=== PATIENT | male | born 1965 | race Two or more races ===

== ENCOUNTER 2024-12-27 05:38 | Day surgery (SDC) | payer OTHER ==
[2024-12-24 10:40] LABS: HEMATOCRIT 35.6 % (39.0-48.0); HEMOGLOBIN 11.6 g/dL (13-16.00); MEAN CELL VOLUME 88.6 fL (80.0-100.00); MEAN CORPUSCULAR HEMOGLOBIN 28.9 pg (27.00-32.0); MEAN CORPUSCULAR HGB CONC 32.7 g/dl (32.0-36.0); PLATELET COUNT 341 K/uL (150-450); RED BLOOD COUNT 4.02 M/uL (4.00-6.00); RED CELL DISTRIBUTION WIDTH 13.8 % (11.5-14.5)
[2024-12-24 10:57] LABS: INR 1.03; PARTIAL THROMBOPLASTIN TIME 29.1 SECONDS (22.0-34.0); PROTHROMBIN TIME 11.2 SECONDS (9.0-11.5)
[2024-12-24 11:00] LABS: ALBUMIN 3.8 gm/dL (3.4-5.0); CALCIUM 9.4 mg/dL (8.5-10.1); CREATININE SERUM 0.92 mg/dL (0.70-1.30); GFR 83.64; PHOSPHOROUS 2.9 mg/dL (2.5-4.9); POTASSIUM 3.61 mEq/L (3.5-5.1)
[2024-12-24 13:23] LABS: PH,URINE 5.5 (5.0-8.0); URINE APPEARANCE Clear; URINE BILIRRUBIN Negative (NEGATIVE); URINE BLOOD Negative; URINE COLOR Yellow; URINE GLUCOSE Negative (NEGATIVE); URINE KETONE Negative (NEGATIVE); URINE LEUKOCYTE Negative; URINE NITRATE Negative; URINE PROTEIN Trace (NEGATIVE)
[2024-12-24 13:26] LABS: URINE EPITHELIAL CELLS 1.4 uL (0.0-38.8)
[2024-12-24 13:46] LABS: URINE RBC 1.7 uL (0.0-20.8); URINE WBC 1.2 uL (0.0-23.2)
[2024-12-27] MEDS ORDERED: CEFAZOLIN SODIUM 1,000 MG VIAL ONE (10:12)
[2024-12-27] MEDS ORDERED: TRAM1TAB98 PO (11:43)
== END 2024-12-27 14:50 | disposition home or self-care (01) ==
LOC: CIR.AMB 05:38
PROVIDERS: ATTEND Surgery
DX: C20 Malignant neoplasm of rectum (principal); I10 Essential (primary) hypertension; E78.5 Hyperlipidemia, unspecified
CPT/HCPCS: 36561; C1751

== ENCOUNTER 2025-05-02 06:27 | Day surgery (SDC) | payer OTHER ==
[2025-04-28 11:04] VITALS: BP 166/83
[2025-04-28 11:24] LABS: BASO % 0.9 % (0.1-1.2); EOS % 1.6 % (0.7-7.0); HEMATOCRIT 38.1 % (40.1-51.0); HEMOGLOBIN 12.3 g/dL (13.7-17.5); LYMPH # 1.35 (1.18-3.74); LYMPH % 21.2 % (19.3-53.1); MEAN CORPUSCULAR HEMOGLOBIN 28.5 pg (25.6-32.2); MONO % 7.8 % (4.7-12.5); NEUT # 4.36 (1.56-6.13); NEUT % 68.3 % (34.0-71.1); PLATELET COUNT 292 K/uL (163-369); RED BLOOD COUNT 4.32 M/uL (4.63-6.08); RED CELL DISTRIBUTION WIDTH 15.9 % (11.6-14.4)
[2025-04-28 11:52] LABS: INR 0.99; PARTIAL THROMBOPLASTIN TIME 24.6 SECONDS (22.0-34.0); PROTHROMBIN TIME 10.8 SECONDS (9.0-11.5)
[2025-04-28 12:09] LABS: BILIRUBIN TOTAL 0.32 mg/dL (0.3-1.2); CALCIUM 9.5 mg/dL (8.5-10.1); CREATININE SERUM 0.81 mg/dL (0.70-1.30); GFR 96.56; GLOBULINA 3.8 G/DL (2.4-3.5); POTASSIUM 4.52 mEq/L (3.5-5.1); TOTAL PROTEIN 7.8 gm/dL (6.4-8.2)
[2025-04-28 14:28] LABS: PH,URINE 5.5 (5.0-8.0); URINE APPEARANCE Clear; URINE BILIRRUBIN Negative (NEGATIVE); URINE BLOOD Negative; URINE COLOR Yellow; URINE GLUCOSE Negative (NEGATIVE); URINE KETONE Trace (NEGATIVE); URINE LEUKOCYTE Negative; URINE NITRATE Negative; URINE PROTEIN 30 (NEGATIVE); URINE UROBILINOGEN 0.2 E.U./dl
[2025-04-28 14:31] LABS: URINE BACTERIA 9.7 uL (0.0-1933); URINE EPITHELIAL CELLS 2.2 uL (0.0-38.8); URINE WBC 3.6 uL (0.0-23.2)
[2025-04-28 14:34] LABS: URINE CAST 0.44 uL (0.0-1.40); URINE RBC 1.9 uL (0.0-20.8)
[~2025-05-02] VITALS: Ht 167.6 cm; Wt 80.7 kg
[~2025-05-02 06:27] MED LIST: HIERRO; LOSARTAN POTAS100 MG; TRAM1TAB98 PO
[2025-05-02] MEDS ORDERED: CEFAZOLIN SODIUM 1,000 MG VIAL ONE (07:37)
[2025-05-02] MEDS ORDERED: BUPIVACAINE HCL/MPF 0.5% 30ML VIAL ONE (07:45)
[2025-05-02] MEDS ORDERED: POVIDONE-IODINE 118 ML BOTT TOP ONE (07:45)
[2025-05-02] MEDS ORDERED: LIDOCAINE HCL 1%/EPINEPHRINE 20ML VIAL IJ ONE (07:46)
[2025-05-02] MEDS ORDERED: HEPARIN SODIUM,PORCINE 500 UNITS/5 ML VIAL IV ONE (07:46)
[2025-05-02] MEDS ORDERED: VANCOMYCIN HCL 1,000 MG VIAL ONE (08:37)
[2025-05-02] MEDS ORDERED: TRAM1TAB98 PO (09:34)
== END 2025-05-02 11:10 | disposition home or self-care (01) ==
LOC: CIR.AMB 06:27
PROVIDERS: ATTEND Surgery
DX: C20 Malignant neoplasm of rectum (principal); T82.594A Other mechanical complication of infusion catheter, initial encounter; R59.0 Localized enlarged lymph nodes; K62.5 Hemorrhage of anus and rectum
CPT/HCPCS: 36561; 36590; C1751